=== PATIENT | female | born 1995 | race African-American/Black ===

== ENCOUNTER 2016-12-28 22:27 | Emergency (ER) | payer MEDICAID ==
[~2016-12-28] VITALS: Ht 162.6 cm; Wt 79.0 kg
[2016-12-29] MEDS: TETANUS, DIPHTHERIA, PERTUSSIS VAC/PF 0.5ML (>7YR OLD) IM ONE (04:24)
[2016-12-29] MEDS: HYDROCODONE/ACETAMINOPHEN 5/325MG TABLET PO ONE (04:25)
[2016-12-29 04:39] VITALS: BP 128/79
== END 2016-12-29 04:50 | disposition home or self-care (01) ==
LOC: ER 22:27
DX: L02.415 Cutaneous abscess of right lower limb (principal)
CPT/HCPCS: 10060; 90471; 90715; 99283; X7700; Z7610

== ENCOUNTER 2016-12-31 05:12 | Emergency (ER) | payer MEDICAID ==
[~2016-12-31] VITALS: Ht 162.6 cm; Wt 79.5 kg
[2016-12-31 10:20] VITALS: BP 124/70
[2016-12-31] MEDS ORDERED: LIDOCAINE HCL 1% 20ML VIAL (Pyxis) INJ INFIL ONE (11:15)
[2016-12-31] MEDS ORDERED: BACITRACIN ZINC OINT UDPKT TOP ONE (11:30)
== END 2016-12-31 12:04 | disposition home or self-care (01) ==
LOC: ER 05:12
DX: Z48.01 Encounter for change or removal of surgical wound dressing (principal); F12.10 Cannabis abuse, uncomplicated
CPT/HCPCS: 99283; J3490; Z7610

== ENCOUNTER 2017-01-19 07:26 | Emergency (ER) | payer MEDICAID ==
[~2017-01-19] VITALS: Ht 162.6 cm; Wt 79.0 kg
[2017-01-19 11:41] VITALS: BP 130/80
== END 2017-01-19 11:43 | disposition home or self-care (01) ==
LOC: ER 08:01
DX: Z48.817 Encounter for surgical aftercare following surgery on the skin and subcutaneous tissue (principal); F12.10 Cannabis abuse, uncomplicated
CPT/HCPCS: 81025; 99283; Z7610